=== PATIENT | female | born 1940 | race Caucasian/White ===

== ENCOUNTER 2018-11-17 14:49 | Inpatient (IN) | payer MEDICARE ==
[2018-11-17] MEDS ORDERED: cefTRIAXone\\ROCEPHIN 1 GM VIAL ONE (15:39)
[2018-11-17] MEDS ORDERED: Acetaminophen 325 MG TAB ONE (15:40)
--- NOTE | 2018-11-17 15:40 | RAD ---
PORTABLE CHEST 1 VIEW: Date: 11/17/18 Time: 1530 hours HISTORY: Cough, congestion. FINDINGS: The heart size is normal. There is a mass-like opacity in the left upper lobe. No pneumothoraces or p leural effusions are seen. Further evaluation with contrast enhanced CT scan is recommended. POS: [facility]
[2018-11-17 15:45] LABS: #Monocytes 1.1 thou/uL (0.11-0.59); #Neutrophils 9.1 thou/uL (1.40-6.50); %Basophils 0.3 % (0.0-1.0); %Eosinophils 0.2 % (0.0-10.0); %Lymphocytes 16.3 % (21.0-51.0); %Monocytes 9.1 % (0.0-10.0); %Neutrophils 74.1 % (42.0-75.0); Hemoglobin 13.1 g/dL (12.0-16.0); Mean Corpuscular HGB CONC 32.8 g/dL (32.0-36.0); Mean Corpuscular Hemoglobin 30.3 pg (27.0-31.0); Mean Corpuscular Volume 92.4 fL (78.0-98.0); Mean Platelet Volume 7.1 fL (7.4-10.4); Platelet Count 243 thou/uL (130-400); Red Blood Cell (RBC) Count 4.31 mill/uL (4.20-5.40); White Blood Cell (WBC) Count 12.3 thou/uL (4.8-10.8)
[2018-11-17] MEDS ORDERED: Azithromycin 500 MG VIAL ONE (15:48)
[2018-11-17 15:57] LABS: Bilirubin Small (Negative); Blood, Urine Moderate (Negative); Clarity CLOUDY (Clear); Glucose, Urine (Dipstick) Negative (Negative); Leukocyte Small (Negative); Nitrite Negative (Negative); Protein, Urine (Dipstick) 100 mg/dL (Neg-Trace); Specific Gravity, Urine 1.028 (1.002-1.036); Urobilinogen 0.2 mg/dL (0.2-1.0)
[2018-11-17 16:01] LABS: WBC/HPF 21-50 HPF (0-3)
[2018-11-17 16:04] LABS: ALT (SGPT) 15 U/L (8-55); AST (SGOT) 22 U/L (5-34); Albumin 3.8 g/dL (3.4-4.8); Alkaline Phosphatase 48 U/L (40-150); Anion Gap 17 mmol/L (10-20); BUN (Urea Nitrogen) 14 mg/dL (9.8-20.1); Bilirubin, Total 0.8 mg/dL (0.2-1.2); Calc. Creatinine Clearance 0 mL/min (70-130); Calcium 8.8 mg/dL (7.8-10.44); Carbon Dioxide 22 mmol/L (23-31); Chloride 99 mmol/L (98-107); Estimated GFR-MDRD 88; Globulin 3.1 g/dL (2.4-3.5); Glucose 112 mg/dL (83-110); Protein, Total 6.9 g/dL (6.0-8.3); Sodium 134 mmol/L (136-145)
[2018-11-17 16:07] LABS: Troponin I Less than 0.010 ng/mL (< 0.028)
[2018-11-17 16:14] LABS: Pathc Cast-AUWi Flag 3.77 (0-2.49)
[2018-11-17 16:26] LABS: Bacteria/HPF 1+ HPF (None Seen); Hyaline Casts/LPF NONE SEEN LPF (0-3 Hyaline); Manual Microscopic Reviewed? No Path Casts Seen; Renal Epithelial None Seen HPF (0-3); Transitional Epithelial 0-3 HPF (0-3)
--- NOTE | 2018-11-17 16:46 | PDOC.FPRHP ---
- History of Present Illness Chief Complaint: falls and weakness History of Present Illness: The patient is an 78 YO female with a PMH significant for lung cancer with mets to the brain diagnosed ~ 2 years ago who presented to the ED per the urging of her family due to multiple falls, generalized weakness and cough that began about 3 days ago. Of note, the patient was not open to answering most questions so the majority of the history was obtained from her son-in-law who was at the bedside. Per the son-in-law the patient came to visit he and his about 3 days ago and has since developed a wet sounding cough and has had 2 falls do to generalized weakness. He stated that he and his have had to help her to the bathroom because she has been too weak to walk there on her own. He also endorsed decreased PO intake. The patient denied any fever/chills, SOB, diarrhea, N/V, or dysuria. She did endorse some chest pain that she feels only when she coughs. 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 Social: Denied any tobacco, EtOH, or drug use. Lives at home alone currently. - Review of Systems ROS unobtainable: other (difficult to obtain as patient was reluctant to answer questions) General: reports: weight/appetite/sleep changes, fatigue. denies: fever/chills Respiratory: reports: cough. denies: shortness of breath Cardiovascular: reports: chest pain. denies: palpitation, edema Gastrointestinal: denies: nausea, vomiting, diarrhea, abdominal pain Genitourinary: reports: other (no hematuria). denies: dysuria Neurological: reports: weakness (genrealized) - Vital signs BP: 135/76 HR: 99 RR: 26 Tmax: 103.7F Pox: 95% on RA Wt: 58 kg - Physical Exam Constitutional: NAD, awake, alert and oriented (difficult to assess orientation as patient was reluctant to answer questions) HEENT: normocephalic and atraumatic, PERRLA, conjunctiva clear, grossly normal vision, grossly normal hearing, oropharynx clear, other (dry mucus memrbanes) Neck: supple, FROM Heart: RRR, normal S1/S2, pulses present, no edema Lungs: no respiratory distress, no wheezing, other (rhonchi in B/L upper lobes) Abdomen: soft, non-tender, bowel sounds present Musculoskeletal: normal structure, ROM grossly normal Neurological: no focal deficit, CN II-XII intact Skin: no rash/lesions, good turgor, no jaundice Heme/Lymphatic: other (ecchymosis over left eye 2/2 fall per family) Psychiatric: normal mood and affect, intact recent and remote memory (difficult to assess as patient was reluctant to talk during interview) FMR H&P: Results - Labs Result Diagrams: 11/21/18 04:05 11/21/18 04:05 Lab results: WBC 12.3 thou/uL (4.8-10.8) H 11/17/18 15:10 Hgb 13.1 g/dL (12.0-16.0) 11/17/18 15:10 Hct 39.8 % (36.0-47.0) 11/17/18 15:10 MCV 92.4 fL (78.0-98.0) 11/17/18 15:10 Plt Count 243 thou/uL (130-400) 11/17/18 15:10 Neutrophils % 74.1 % (42.0-75.0) 11/17/18 15:10 Sodium 134 mmol/L (136-145) L 11/17/18 15:10 Potassium 4.0 mmol/L (3.5-5.1) 11/17/18 15:10 Chloride 99 mmol/L (98-107) 11/17/18 15:10 Carbon Dioxide 22 mmol/L (23-31) L 11/17/18 15:10 BUN 14 mg/dL (9.8-20.1) 11/17/18 15:10 Creatinine 0.65 mg/dL (0.6-1.1) 11/17/18 15:10 Glucose 112 mg/dL (83-110) H 11/17/18 15:10 Calcium 8.8 mg/dL (7.8-10.44) 11/17/18 15:10 Total Bilirubin 0.8 mg/dL (0.2-1.2) 11/17/18 15:10 AST 22 U/L (5-34) 11/17/18 15:10 ALT 15 U/L (8-55) 11/17/18 15:10 Alkaline Phosphatase 48 U/L (40-150) 11/17/18 15:10 Serum Total Protein 6.9 g/dL (6.0-8.3) 11/17/18 15:10 Albumin 3.8 g/dL (3.4-4.8) 11/17/18 15:10 Urine Ketones 80 mg/dL (Negative) H 11/17/18 15:27 Urine Blood Moderate (Negative) H 11/17/18 15:27 Urine Nitrite Negative (Negative) 11/17/18 15:27 Ur Leukocyte Esterase Small (Negative) H 11/17/18 15:27 Urine RBC 11-20 HPF (0-3) H 11/17/18 15:27 Urine WBC 21-50 HPF (0-3) H 11/17/18 15:27 Ur Squamous Epith Cells 7-10 HPF (0-3) H 11/17/18 15:27 Urine Bacteria 1+ HPF (None Seen) H 11/17/18 15:27 - EKG Interpretation EKG: NSR - Radiology Interpretation Chest x-ray Status: image reviewed by me, report reviewed by me (SARA opacity) FMR H&P: A/P - Problem List (1) Sepsis Current Visit: Yes Status: Resolved Code(s): A41.9 - SEPSIS, UNSPECIFIED ORGANISM (2) Pneumonia Current Visit: Yes Status: Acute Code(s): J18.9 - PNEUMONIA, UNSPECIFIED ORGANISM (3) Lung cancer metastatic to brain Current Visit: Yes Status: Chronic Code(s): C34.90 - MALIGNANT NEOPLASM OF UNSP PART OF UNSP BRONCHUS OR LUNG; C79.31 - SECONDARY MALIGNANT NEOPLASM OF BRAIN - Plan 78YO female w/ a PMH significant for metastatic lung cancer to the brain who presented to the ED with a CC of cough, weakness and falls over the last 3 days who was found to be septic 2/2 post-obstructive PNA. Sepsis 2/2 post-obstructive PNA: - WBC elevated at 12.3 and fever up to 101.9F in the ER w/ SARA opacity seen on CXR consistent w/ lung CA diagnosis. Flu swab negative in the ED. PNA most likely post-obstructive 2/2 lung mass. - s/p 1.6L of NS and IV rocephin and azithromycin in the ED. - Will continue IVFs w/ NS @ 125mL/hr and will continue IV antibiotics. - Blood and urine cultures pending as well as a lactate and procal. Sputum cultures also ordered if patient is able to provide an adequate sample. - Will order DAVIS mucinex and PRN tessalon and Duonebs for cough. - Will order PRN O2 via nasal canula to maintain sats >92%. - Will order PRN tylenol for fever. Hyponatremia: - Na slightly below normal at 134 on admission. - Likely 2/2 decreased PO intake. - Will order a regular diet and continue IVFs w/ NS @ 125mL/hr. Lung cancer with mets to the brain: - Aware, patient is refusing any further workup or interventions. - CM and palliative care consulted per wishes of patient's family. Weakness w/ h/o multiple falls: - Likely 2/2 decreased PO intake and PNA. Patient refused further imaging such as a CT scan to r/o ICH. - Will encourage increased PO intake. - PT and OT consulted as well. Code Status: DNAR DVT PPX: lovenox & SCDs if patient refuses. ABX: rocephin & azithromycin IVFs: NS @ 125mL/hr Dispo: Will monitor on medical floor overnight. Anticipate d/c in ~2 days if patient remains HD stable. FMR H&P: Upper Level - Pertinent history 78 yo female presents for evaluation of increasing weakness. Patient has been in [facility] for 4 days visiting her daughter who lives in [facility]. Over the past four days she has had an increasing cough productive of sputum as well as progressive weakness which includes two falls. Patient has also had fevers at home. Patient and her family deny abdominal pain, n/v/d, rashes, or any focal deficits. Please refer to contracts intern note above for further history and documentation. Physical Exam: General: Female appears stated age. Moderately ill appearing Vitals: BP 129/59, Pulse 95, Resp 26, Tmax 103.7, O2 96% on Room Air CV: RRR, no murmurs Respiratory: Coarse lung sounds to bilateral upper lobes. Expiratory wheezing throughout Abdomen: Soft, nontender, normo-active bowel sounds. Extremities: Pulses equal bilaterally. No edema Neuro: CN grossly intact, no focal deficits - Plan Date/Time: 11/17/18 1646 I, Bakari Rodriguez MD, have evaluated this patient and agree with findings/ plan as outlined by contracts intern resident. Pertinent changes/additions are listed here. 1. Sepsis 2/2 to CAP - Continue antibiotics - Will order Lactic acid and Procalcitonin - IVF - Supportive therapy - Influenza negative - WBC 12.3 on admission - Consider nebulizers for symptomatic treatment 2. History of Lung Cancer - Patient is declining further imaging of chest and brain - Family is requesting Palliative Care consultation 3. Multiple falls - Likely secondary to above - Contusion to Left eye - Patient declines further imaging CODE STATUS: DNI-DNR Disposition: Stable, will admit to medical floor to continue plan of care. Addendum - Attending - Attending Attestation Date/Time: 11/21/18 1631 I personally evaluated the patient and discussed the management with Dr. Adamson on 11/17/18. I agree with the History, Examination, Assessment and Plan documented above with any addition or exceptions noted below. 78 y.o. WF with h/o Lung CA with mets to brain who's declined Evidence-based CTX and/or XRT for aromatherapy and nutritional therapy, here with increased weakness, falls, weight loss found to have SARA infiltrate that could be mass- related with possible post-obstructive PNA. With fever and increased WBC's, she 's being admitted for PNA, though pt. has declined further imaging or w/u to completely assess her situation after counseling to the consequence.
--- NOTE | 2018-11-17 16:46 | PDOC.FPROB ---
FMR OB H&P: Results - Labs Lab results: Laboratory Results - last 24 hr 11/17/18 11/17/18 11/17/18 15:10 15:10 15:10 WBC 12.3 H RBC 4.31 Hgb 13.1 Hct 39.8 MCV 92.4 MCH 30.3 MCHC 32.8 RDW 12.0 Plt Count 243 MPV 7.1 L Neutrophils % 74.1 Lymphocytes % 16.3 L Monocytes % 9.1 Eosinophils % 0.2 Basophils % 0.3 Neutrophils # 9.1 H Lymphocytes # 2.0 Monocytes # 1.1 H Eosinophils # 0.0 Basophils # 0.0 Sodium 134 L Potassium 4.0 Chloride 99 Carbon Dioxide 22 L Anion Gap 17 BUN 14 Creatinine 0.65 Estimated GFR (MDRD) 88 Glucose 112 H Calcium 8.8 Total Bilirubin 0.8 AST 22 ALT 15 Alkaline Phosphatase 48 Troponin I Less than 0.010 Serum Total Protein 6.9 Albumin 3.8 Globulin 3.1 Albumin/Globulin Ratio 1.2 FMR OB H&P: A/P Discussion: Date/Time: 11/17/181621 This H&P was discussed with [] and [] who agree with the above documentation and plan.
[2018-11-17] MEDS ORDERED: Acetaminophen 325 MG TAB PO PRN ×2 (18:46→18:49)
[2018-11-17] MEDS ORDERED: Ondansetron ODT 4 MG TAB PO PRN (18:49)
[2018-11-17] MEDS ORDERED: Benzonatate 100 MG CAP PO PRN (18:49)
[2018-11-17 19:27] VITALS: BMI 19.3
[2018-11-17] MEDS: Sodium Chloride 0.9% 1,000 ML IV SCH (19:42)
[2018-11-17] MEDS: guaiFENesin/DM ER PO SCH (20:39)
[2018-11-18] MEDS: Sodium Chloride 0.9% 1,000 ML IV SCH ×3 (03:43→18:49)
[2018-11-18 05:08] LABS: #Monocytes 1.1 thou/uL (0.11-0.59); #Neutrophils 7.1 thou/uL (1.40-6.50); %Basophils 0.3 % (0.0-1.0); %Eosinophils 0.4 % (0.0-10.0); %Lymphocytes 19.7 % (21.0-51.0); %Monocytes 10.7 % (0.0-10.0); %Neutrophils 68.9 % (42.0-75.0); Hemoglobin 11.7 g/dL (12.0-16.0); Mean Corpuscular HGB CONC 33.1 g/dL (32.0-36.0); Mean Corpuscular Hemoglobin 30.9 pg (27.0-31.0); Mean Corpuscular Volume 93.6 fL (78.0-98.0); Mean Platelet Volume 7.1 fL (7.4-10.4); Platelet Count 219 thou/uL (130-400); RBC Distribution Width 12.1 % (11.5-14.5); Red Blood Cell (RBC) Count 3.79 mill/uL (4.20-5.40); White Blood Cell (WBC) Count 10.4 thou/uL (4.8-10.8)
[2018-11-18 05:31] LABS: Anion Gap 11 mmol/L (10-20); BUN (Urea Nitrogen) 12 mg/dL (9.8-20.1); Calc. Creatinine Clearance 71 mL/min (70-130); Calcium 8.6 mg/dL (7.8-10.44); Carbon Dioxide 24 mmol/L (23-31); Chloride 107 mmol/L (98-107); Estimated GFR-MDRD Greater than 90; Glucose 107 mg/dL (83-110); Potassium 3.6 mmol/L (3.5-5.1); Sodium 138 mmol/L (136-145)
--- NOTE | 2018-11-18 06:59 | PDOC.FM ---
- Subjective Subjective: 78 yo f with lung cancer presents s/p fall admitted for sepsis 2/2 CAP vs UTI. No complaints this morning. Denies shortness of breath, chest pain, pain in general. - Objective MAR Reviewed: Yes Vital Signs & Weight: Vital Signs (12 hours) Temp Pulse Resp BP Pulse Ox 11/18/18 03:46 98.5 F 78 18 119/64 92 L 11/18/18 00:00 99.1 F 84 20 140/70 92 L 11/17/18 20:00 93 L Weight Weight 59.466 kg I&O: 11/16/18 11/17/18 11/18/18 06:59 06:59 06:59 Intake Total 1500 Output Total 450 Balance 1050 Result Diagrams: 11/18/18 04:04 11/18/18 04:04 Phys Exam - Physical Examination Constitutional: NAD HEENT: PERRLA, moist MMs Respiratory: no wheezing, no rales decreased breath sounds bilaterally Cardiovascular: RRR, no significant murmur Gastrointestinal: soft, non-tender Musculoskeletal: no edema Neurological: non-focal Psychiatric: normal affect, A&O x 3 Skin: no rash Dx/Plan (1) CAP (community acquired pneumonia) Code(s): J18.9 - PNEUMONIA, UNSPECIFIED ORGANISM Status: Acute (2) UTI (urinary tract infection) Status: Acute (3) Lung cancer metastatic to brain Code(s): C34.90 - MALIGNANT NEOPLASM OF UNSP PART OF UNSP BRONCHUS OR LUNG; C79.31 - SECONDARY MALIGNANT NEOPLASM OF BRAIN Status: Acute (4) Sepsis Code(s): A41.9 - SEPSIS, UNSPECIFIED ORGANISM Status: Acute - Plan Plan: 78YO female w/ a PMH significant for metastatic lung cancer to the brain who presented to the ED with a CC of cough, weakness and falls over the last 3 days who was found to be septic 2/2 post-obstructive PNA. Sepsis 2/2 post-obstructive PNA: - WBC elevated at 12.3 and fever up to 101.9F in the ER w/ SARA opacity seen on CXR consistent w/ lung CA diagnosis. Flu swab negative in the ED. PNA most likely post-obstructive 2/2 lung mass. WBC downtrended to 11.2 - s/p 1.6L of NS and IV rocephin and azithromycin in the ED. - Will decrease fluids to 75 mL/hr and will continue IV antibiotics. - Blood and urine cultures pending as well as a lactate and procal. - DAVIS mucinex and PRN tessalon and Duonebs for cough. - PRN O2 via nasal canula to maintain sats >92%. - PRN tylenol for fever. Hyponatremia - resolved - Likely 2/2 decreased PO intake. - Will order a regular diet and continue IVFs w/ NS @ 75mL/hr. Lung cancer with mets to the brain: - Aware, patient is refusing any further workup or interventions. - CM and palliative care consulted per wishes of patient's family. - PT consulted Weakness w/ h/o multiple falls: - Likely 2/2 decreased PO intake and PNA. Patient refused further imaging such as a CT scan to r/o ICH. - Will encourage increased PO intake. - PT and OT consulted as well.
[2018-11-18] MEDS: guaiFENesin/DM ER PO SCH ×2 (08:39→21:00)
[2018-11-18] MEDS: Enoxaparin Sodium 40 MG/0.4 ML SYRINGE SC SCH (08:45)
--- NOTE | 2018-11-18 11:09 | PRG ---
DATE OF SERVICE: 11/18/2018 Ms. Payne is a pleasant, but very quiet 78-year-old white female with metastatic lung cancer. She does not desire any medical therapy. We have consulted Palliative Care and we are having discussions also with the patient's daughter. We will of course honor her wishes. Job ID: [id number]
[2018-11-18] MEDS ORDERED: cefTRIAXone\\ROCEPHIN 1 GM in Sodium Chloride 0.9% 100 ML IVPB SCH (15:00)
[2018-11-18] MEDS ORDERED: Azithromycin 500 MG in Sodium Chloride 0.9% 250 ML 250 ML IVPB SCH (16:00)
[2018-11-19] MEDS: Sodium Chloride 0.9% 1,000 ML IV SCH ×3 (02:49→20:50)
[2018-11-19 05:53] LABS: #Eosinphils 0.3 thou/uL (0.0-0.7); #Lymphocytes 2.4 thou/uL (1.20-3.40); #Monocytes 0.8 thou/uL (0.11-0.59); #Neutrophils 3.6 thou/uL (1.40-6.50); %Basophils 0.6 % (0.0-1.0); %Lymphocytes 33.9 % (21.0-51.0); %Neutrophils 50.5 % (42.0-75.0); Hemoglobin 11.5 g/dL (12.0-16.0); Mean Corpuscular HGB CONC 32.7 g/dL (32.0-36.0); Mean Corpuscular Hemoglobin 30.8 pg (27.0-31.0); Mean Platelet Volume 7.1 fL (7.4-10.4); Platelet Count 245 thou/uL (130-400); RBC Distribution Width 12.2 % (11.5-14.5); Red Blood Cell (RBC) Count 3.72 mill/uL (4.20-5.40); White Blood Cell (WBC) Count 7.2 thou/uL (4.8-10.8)
[2018-11-19 06:23] LABS: Anion Gap 11 mmol/L (10-20); BUN (Urea Nitrogen) 12 mg/dL (9.8-20.1); Calc. Creatinine Clearance 77 mL/min (70-130); Calcium 8.3 mg/dL (7.8-10.44); Carbon Dioxide 23 mmol/L (23-31); Chloride 108 mmol/L (98-107); Estimated GFR-MDRD Greater than 90; Glucose 91 mg/dL (83-110); Potassium 3.7 mmol/L (3.5-5.1); Sodium 138 mmol/L (136-145)
--- NOTE | 2018-11-19 07:23 | PDOC.FM ---
- Subjective Subjective: NAEON. Doing well this morning, eating breakfast. Denies shortness of breath or difficulty breathing. Agreeable to swing bed in [place]. Pending approval. - Objective MAR Reviewed: Yes Vital Signs & Weight: Weight Admit Weight 59.466 kg Weight 59.466 kg I&O: 11/18/18 11/19/18 11/20/18 06:59 06:59 06:59 Intake Total 1500 2300 Output Total 450 750 Balance 1050 1550 Result Diagrams: 11/19/18 05:23 11/19/18 05:23 Phys Exam - Physical Examination Constitutional: NAD HEENT: PERRLA, moist MMs Respiratory: no wheezing, no rales decreased breath sounds bilaterally Cardiovascular: RRR, no significant murmur Gastrointestinal: soft, non-tender, no distention Musculoskeletal: no edema, pulses present Neurological: non-focal Psychiatric: normal affect, A&O x 3 Skin: no rash Dx/Plan (1) post obstructive pneumonia Status: Suspected (2) CAP (community acquired pneumonia) Code(s): J18.9 - PNEUMONIA, UNSPECIFIED ORGANISM Status: Suspected (3) UTI (urinary tract infection) Status: Ruled-out (4) Lung cancer metastatic to brain Code(s): C34.90 - MALIGNANT NEOPLASM OF UNSP PART OF UNSP BRONCHUS OR LUNG; C79.31 - SECONDARY MALIGNANT NEOPLASM OF BRAIN Status: Chronic (5) Sepsis Code(s): A41.9 - SEPSIS, UNSPECIFIED ORGANISM Status: Resolved - Plan Plan: 78YO female w/ a PMH significant for metastatic lung cancer to the brain who presented to the ED with a CC of cough, weakness and falls over the last 3 days who was found to be septic 2/2 post-obstructive PNA. Sepsis 2/2 post-obstructive PNA vs CAP: - Will decrease fluids to 75 mL/hr and transitioned to PO azithro and omnicef today - Blood and urine cultures negative - DAVIS mucinex and PRN tessalon and Duonebs for cough. - PRN O2 via nasal canula to maintain sats >92%. - PRN tylenol for fever. Hyponatremia - resolved Lung cancer with mets to the brain: - Aware, patient is refusing any further workup or interventions. - CM and palliative care consulted per wishes of patient's family. Pt is pending approval at [facility] [place]. - PT consulted Weakness w/ h/o multiple falls: - Likely 2/2 decreased PO intake and PNA. Patient refused further imaging such as a CT scan to r/o ICH. - Will encourage increased PO intake. - PT and OT consulted. Dispo: probable discharge today or tomorrow pending acceptance at swing bed in [place].
[2018-11-19] MEDS: Azithromycin 250 MG TAB PO SCH (09:18)
[2018-11-19] MEDS: Cefdinir 300 MG CAP PO SCH ×2 (09:18→20:13)
[2018-11-19] MEDS: Enoxaparin Sodium 40 MG/0.4 ML SYRINGE SC SCH (09:19)
--- NOTE | 2018-11-19 11:01 | PRG ---
DATE OF SERVICE: 11/19/2018 SUBJECTIVE: Ms. Payne seems in better spirits this morning. She is not having any cough or chest discomfort. No shortness of breath. We have switched her to p.o. medications in anticipation of discharge in a day or two. Job ID: [id number]
[2018-11-19] MEDS: guaiFENesin/DM ER PO SCH ×2 (11:08→20:12)
[2018-11-20] MEDS: Sodium Chloride 0.9% 1,000 ML IV SCH (01:19)
[2018-11-20 04:17] LABS: #Basophils 0.1 thou/uL (0.0-0.2); #Eosinphils 0.4 thou/uL (0.0-0.7); #Lymphocytes 2.6 thou/uL (1.20-3.40); #Monocytes 0.7 thou/uL (0.11-0.59); #Neutrophils 3.2 thou/uL (1.40-6.50); %Basophils 0.9 % (0.0-1.0); %Eosinophils 5.1 % (0.0-10.0); %Lymphocytes 37.4 % (21.0-51.0); %Monocytes 9.9 % (0.0-10.0); %Neutrophils 46.6 % (42.0-75.0); Hemoglobin 11.8 g/dL (12.0-16.0); Mean Corpuscular HGB CONC 32.8 g/dL (32.0-36.0); Mean Corpuscular Hemoglobin 30.7 pg (27.0-31.0); Mean Corpuscular Volume 93.5 fL (78.0-98.0); Mean Platelet Volume 6.7 fL (7.4-10.4); Platelet Count 258 thou/uL (130-400); Red Blood Cell (RBC) Count 3.84 mill/uL (4.20-5.40); White Blood Cell (WBC) Count 6.8 thou/uL (4.8-10.8)
[2018-11-20 04:37] LABS: Anion Gap 11 mmol/L (10-20); BUN (Urea Nitrogen) 9 mg/dL (9.8-20.1); Calc. Creatinine Clearance 79 mL/min (70-130); Calcium 8.4 mg/dL (7.8-10.44); Carbon Dioxide 24 mmol/L (23-31); Chloride 108 mmol/L (98-107); Estimated GFR-MDRD Greater than 90; Glucose 96 mg/dL (83-110); Potassium 3.3 mmol/L (3.5-5.1); Sodium 140 mmol/L (136-145)
--- NOTE | 2018-11-20 07:24 | PDOC.FM ---
- Subjective Subjective: NAEON. Doing well this morning. - Objective MAR Reviewed: Yes Vital Signs & Weight: Vital Signs (12 hours) Temp Pulse Resp BP Pulse Ox 11/19/18 20:00 98.5 F 65 16 137/65 95 Weight Admit Weight 59.466 kg Weight 59.466 kg I&O: 11/19/18 11/20/18 11/21/18 06:59 06:59 06:59 Intake Total 2300 1550 Output Total 750 800 Balance 1550 750 Result Diagrams: 11/20/18 03:53 11/20/18 03:53 Phys Exam - Physical Examination Constitutional: NAD HEENT: PERRLA, moist MMs Respiratory: no wheezing, no rales decreased breath sounds bilaterally Cardiovascular: RRR, no significant murmur Gastrointestinal: soft, non-tender, no distention, positive bowel sounds Musculoskeletal: no edema, pulses present Neurological: non-focal, normal sensation Psychiatric: normal affect, A&O x 3 Skin: no rash, normal turgor Dx/Plan (1) post obstructive pneumonia Status: Suspected (2) CAP (community acquired pneumonia) Code(s): J18.9 - PNEUMONIA, UNSPECIFIED ORGANISM Status: Ruled-out (3) UTI (urinary tract infection) Status: Ruled-out (4) Lung cancer metastatic to brain Code(s): C34.90 - MALIGNANT NEOPLASM OF UNSP PART OF UNSP BRONCHUS OR LUNG; C79.31 - SECONDARY MALIGNANT NEOPLASM OF BRAIN Status: Chronic (5) Sepsis Code(s): A41.9 - SEPSIS, UNSPECIFIED ORGANISM Status: Resolved - Plan Plan: 78YO female w/ a PMH significant for metastatic lung cancer to the brain who presented to the ED with a CC of cough, weakness and falls over the last 3 days who was found to be septic 2/2 post-obstructive PNA. Sepsis 2/2 post-obstructive PNA vs CAP: - Continue PO azithro and omnicef today - Blood cx negative; urine cx + for gram negative rods - DAVIS mucinex and PRN tessalon and Duonebs for cough. - PRN O2 via nasal canula to maintain sats >92%. - PRN tylenol for fever. Hyponatremia - resolved Lung cancer with mets to the brain: - Aware, patient is refusing any further workup or interventions. - CM and palliative care consulted per wishes of patient's family. Pt is pending approval at swing bed in [place]. - PT consulted Weakness w/ h/o multiple falls: - Likely 2/2 decreased PO intake and PNA. Patient refused further imaging such as a CT scan to r/o ICH. - Will encourage increased PO intake. - PT and OT consulted. Dispo: probable discharge today pending acceptance at swing bed in [place].
[2018-11-20] MEDS ORDERED: Potassium Chloride 20 MEQ TAB PO SCH (07:30)
[2018-11-20] MEDS: Enoxaparin Sodium 40 MG/0.4 ML SYRINGE SC SCH (08:23)
[2018-11-20] MEDS: Azithromycin 250 MG TAB PO SCH (08:23)
[2018-11-20] MEDS: Cefdinir 300 MG CAP PO SCH ×2 (08:23→20:25)
[2018-11-20] MEDS: guaiFENesin/DM ER PO SCH ×2 (08:25→20:25)
--- NOTE | 2018-11-20 10:52 | PDOC.EVN ---
Event Note - Event Note Event Note: SHARON: HPI: 78 YO female w/ a PMH significant for metastatic lung cancer to the brain who presented to the ED with a CC of cough, weakness and falls over the last 3 days who was found to be septic 2/2 post-obstructive PNA. Sepsis 2/2 post-obstructive PNA vs CAP: Pt initially started on IV rocephin and azithromicin, now transitioned to PO omnicef and azithromicin. Pt continues to improve clinically. Blood cx were negative. Ucx grew gram negative rods but only 5,000 CFU's and pt asymptomatic, however the pt is also on omnicef for coverage. Pt is pending placement at a swing bed in [place]. Pt will complete 5 days of omnicef and azithromicin. Lung cancer with mets to the brain- patient is refusing any further workup or interventions. CM and palliative care consulted per wishes of patient's family. Pt is pending approval at swing bed in [place]. Weakness w/ h/o multiple falls: Likely 2/2 decreased PO intake and PNA. Patient refused further imaging such as a CT scan to r/o ICH.
--- NOTE | 2018-11-20 11:37 | PRG ---
DATE OF SERVICE: 11/20/2018 TYPE OF REPORT: Daily note SUBJECTIVE: Ms. Payne is sitting comfortably in a chair, in no distress. We are still awaiting swing bed placement. From medical standpoint, she has improved and is stable. Job ID: [id number]
[2018-11-21] MEDS: Sodium Chloride 0.9% 1,000 ML IV SCH ×2 (03:25→11:07)
[2018-11-21 05:15] LABS: #Eosinphils 0.4 thou/uL (0.0-0.7); #Lymphocytes 2.9 thou/uL (1.20-3.40); #Monocytes 0.6 thou/uL (0.11-0.59); %Eosinophils 5.3 % (0.0-10.0); %Lymphocytes 41.4 % (21.0-51.0); %Monocytes 9.1 % (0.0-10.0); %Neutrophils 44.2 % (42.0-75.0); Hemoglobin 11.5 g/dL (12.0-16.0); Mean Corpuscular HGB CONC 33.4 g/dL (32.0-36.0); Mean Corpuscular Hemoglobin 31.1 pg (27.0-31.0); Mean Corpuscular Volume 93.3 fL (78.0-98.0); Platelet Count 294 thou/uL (130-400); RBC Distribution Width 11.9 % (11.5-14.5); Red Blood Cell (RBC) Count 3.71 mill/uL (4.20-5.40); White Blood Cell (WBC) Count 6.9 thou/uL (4.8-10.8)
[2018-11-21 05:49] LABS: Anion Gap 11 mmol/L (10-20); BUN (Urea Nitrogen) 9 mg/dL (9.8-20.1); Calc. Creatinine Clearance 73 mL/min (70-130); Calcium 8.5 mg/dL (7.8-10.44); Carbon Dioxide 27 mmol/L (23-31); Chloride 107 mmol/L (98-107); Estimated GFR-MDRD Greater than 90; Glucose 102 mg/dL (83-110); Potassium 3.5 mmol/L (3.5-5.1); Sodium 141 mmol/L (136-145)
[2018-11-21] MEDS: Enoxaparin Sodium 40 MG/0.4 ML SYRINGE SC SCH (09:24)
[2018-11-21] MEDS: Azithromycin 250 MG TAB PO SCH (09:31)
[2018-11-21] MEDS: Cefdinir 300 MG CAP PO SCH ×2 (09:31→20:05)
[2018-11-21] MEDS: guaiFENesin/DM ER PO SCH ×2 (09:31→20:05)
--- NOTE | 2018-11-21 10:13 | PRG ---
DATE OF SERVICE: 11/21/2018 Ms. Payne is sitting comfortably in her chair, in no distress. We are still awaiting swing bed placement. Clinically, she remains improved. Job ID: [id number]
--- NOTE | 2018-11-21 10:46 | PDOC.FM ---
- Subjective Subjective: Patient seen this morning sitting up eating breakfast. No complaints or new symptoms this morning. No acute events over night. - Objective MAR Reviewed: Yes Vital Signs & Weight: Vital Signs (12 hours) Temp Pulse Resp BP Pulse Ox 11/21/18 08:20 97.4 F L 69 16 139/71 94 L Weight Admit Weight 59.466 kg Weight 59.466 kg I&O: 11/20/18 11/21/18 11/22/18 06:59 06:59 06:59 Intake Total 1550 2350 Output Total 800 Balance 750 2350 Result Diagrams: 11/21/18 04:05 11/21/18 04:05 Phys Exam - Physical Examination Constitutional: NAD HEENT: moist MMs Neck: no nodes Respiratory: clear to auscultation bilateral Cardiovascular: RRR, no significant murmur Gastrointestinal: no distention Musculoskeletal: no edema Neurological: moves all 4 limbs Psychiatric: A&O x 3 Skin: no rash Dx/Plan (1) post obstructive pneumonia Status: Acute (2) Lung cancer metastatic to brain Code(s): C34.90 - MALIGNANT NEOPLASM OF UNSP PART OF UNSP BRONCHUS OR LUNG; C79.31 - SECONDARY MALIGNANT NEOPLASM OF BRAIN Status: Chronic (3) Sepsis Code(s): A41.9 - SEPSIS, UNSPECIFIED ORGANISM Status: Resolved (4) UTI (urinary tract infection) Status: Ruled-out - Plan Plan: 1. Sepsis 2/2 post-obstructive PNA vs CAP: - Continue PO azithro and omnicef today, plan for 1 week total duration - Blood cx negative; urine cx + for gram negative rods - DAVIS mucinex and PRN tessalon and Duonebs for cough. - PRN O2 via nasal canula to maintain sats >92%. - PRN tylenol for fever. Lung cancer with mets to the brain: - patient is refusing any further workup or interventions. - CM and palliative care consulted per wishes of patient's family. Pt is pending approval at [facility] in [place]. - PT consulted Weakness w/ h/o multiple falls: - Likely 2/2 decreased PO intake and PNA. Patient refused further imaging such as a CT scan to r/o ICH. - Will encourage increased PO intake. - PT and OT consulted. UTI - treat as above Dispo: probable discharge today pending acceptance at swing bed in [place].
[2018-11-22] MEDS: Sodium Chloride 0.9% 1,000 ML IV SCH (01:02)
--- NOTE | 2018-11-22 08:08 | PDOC.FM ---
- Subjective Subjective: Patient seen at bedside this morning resting comfortably. No new complaints or problems. Denies continue cough or SOB. No acute events over night - Objective MAR Reviewed: Yes Vital Signs & Weight: Vital Signs (12 hours) Temp Pulse Resp BP BP Pulse Ox 11/22/18 05:00 98.2 F 61 18 159/74 H 95 11/22/18 00:26 97.5 F L 82 16 164/79 H 97 11/21/18 20:00 97.7 F 70 16 127/62 96 Weight Admit Weight 59.466 kg Weight 59.466 kg I&O: 11/21/18 11/22/18 11/23/18 06:59 06:59 06:59 Intake Total 2350 1850 Balance 2350 1850 Result Diagrams: 11/21/18 04:05 11/21/18 04:05 Phys Exam - Physical Examination Constitutional: NAD HEENT: moist MMs Neck: no JVD Respiratory: clear to auscultation bilateral Cardiovascular: RRR Gastrointestinal: soft, non-tender, no distention Musculoskeletal: no edema Neurological: moves all 4 limbs Psychiatric: A&O x 3 Skin: no rash Dx/Plan (1) post obstructive pneumonia Status: Acute (2) Lung cancer metastatic to brain Code(s): C34.90 - MALIGNANT NEOPLASM OF UNSP PART OF UNSP BRONCHUS OR LUNG; C79.31 - SECONDARY MALIGNANT NEOPLASM OF BRAIN Status: Chronic (3) Sepsis Code(s): A41.9 - SEPSIS, UNSPECIFIED ORGANISM Status: Resolved (4) UTI (urinary tract infection) Status: Ruled-out - Plan Plan: 1. Sepsis 2/2 post-obstructive PNA vs CAP, resolved - Continue PO azithro and omnicef today, plan for 1 week total duration. Dc abx tomorrow. - Blood cx negative; urine cx + for gram negative rods will be treated by omnicef 2. Lung cancer with mets to the brain: - patient is refusing any further workup or interventions. - CM and palliative care consulted per wishes of patient's family. Pt is pending approval at [facility] in [place]. - PT consulted 3. Weakness w/ h/o multiple falls: - Likely 2/2 decreased PO intake and PNA. Patient refused further imaging such as a CT scan to r/o ICH. - Will encourage increased PO intake. - PT and OT consulted. 4. UTI - treat as above Dispo: ready to discharge today pending acceptance at swing bed in [place].
[2018-11-22] MEDS: Cefdinir 300 MG CAP PO SCH ×2 (09:58→20:11)
[2018-11-22] MEDS: guaiFENesin/DM ER PO SCH ×2 (09:58→20:11)
[2018-11-22] MEDS: Enoxaparin Sodium 40 MG/0.4 ML SYRINGE SC SCH (09:59)
[2018-11-22] MEDS: Azithromycin 250 MG TAB PO SCH (09:59)
--- NOTE | 2018-11-22 10:16 | PRG ---
DATE OF SERVICE: 11/22/2018 This is an addendum to the note of Dr. Kirk Bernal. Ms. Payne is having no acute distress. No new problems. We are still awaiting swing bed in [place]. This will be her last day of antibiotic for her community-acquired pneumonia. Job ID: [id number]
--- NOTE | 2018-11-23 07:29 | PDOC.FM ---
- Subjective Subjective: THis morning patient states she is feeling well overall. She denies n/v/d. Denies shortness of breath or cough. States she tolerated supper well last night. Discussed advanced directives with patient and daughter, ALLEN. They do want to initiated OOH DNAR. - Objective Vital Signs & Weight: Vital Signs (12 hours) Temp Pulse Resp BP BP Pulse Ox 11/23/18 04:28 98.4 F 64 16 149/68 H 96 11/23/18 00:20 98.0 F 62 16 155/68 H 96 11/22/18 19:51 97.9 F 62 18 127/64 95 Weight Admit Weight 59.466 kg Weight 59.466 kg I&O: 11/22/18 11/23/18 11/24/18 06:59 06:59 06:59 Intake Total 1850 1610 Balance 1850 1610 Result Diagrams: 11/21/18 04:05 11/21/18 04:05 Phys Exam - Physical Examination Constitutional: NAD HEENT: PERRLA, moist MMs Neck: full ROM Respiratory: no wheezing, clear to auscultation bilateral Cardiovascular: RRR, no significant murmur Gastrointestinal: soft, non-tender, no distention, positive bowel sounds Musculoskeletal: no edema, pulses present Neurological: non-focal, moves all 4 limbs Psychiatric: normal affect, A&O x 3 Skin: cap refill <2 seconds Dx/Plan (1) Pneumonia Code(s): J18.9 - PNEUMONIA, UNSPECIFIED ORGANISM Status: Acute (2) Lung cancer metastatic to brain Code(s): C34.90 - MALIGNANT NEOPLASM OF UNSP PART OF UNSP BRONCHUS OR LUNG; C79.31 - SECONDARY MALIGNANT NEOPLASM OF BRAIN Status: Chronic (3) CAP (community acquired pneumonia) Code(s): J18.9 - PNEUMONIA, UNSPECIFIED ORGANISM Status: Ruled-out (4) UTI (urinary tract infection) Status: Ruled-out - Plan Plan: # Sepsis 2/2 post-obstructive PNA vs CAP, resolved - s/p azithromycin, today is final dose of omnicef - Blood cx negative x2 ; urine cx + for gram negative rods s/p treatment with omnicef # Lung cancer with mets to the brain: - patient is refusing any further workup or interventions. - CM and palliative care consulted per wishes of patient's family. Patient and family would like to establish care with palliative care company outpatient - PT consulted # Weakness w/ h/o multiple falls: - Likely 2/2 decreased PO intake and PNA. Patient refused further imaging such as a CT scan to r/o ICH. - Will encourage increased PO intake. - PT and OT consulted. # UTI - treat as above # Placement - pending [employer] and insurance prior authorization for [facility] bed - patient is stable for transfer when above is established Dispo: pending placement Addendum - Attending - Attending Attestation Date/Time: 11/23/18 9830 I personally evaluated the patient and discussed the management with Dr. Jon King I agree with the History, Examination, Assessment and Plan documented above with any addition or exceptions noted below.Patient doing well looking into d/c planning with rehab in [place], Patient and Daughter aware of plans.
[2018-11-23] MEDS: guaiFENesin/DM ER PO SCH ×2 (09:54→21:09)
[2018-11-23] MEDS: Enoxaparin Sodium 40 MG/0.4 ML SYRINGE SC SCH (09:54)
[2018-11-23] MEDS: Cefdinir 300 MG CAP PO SCH (09:54)
--- NOTE | 2018-11-23 17:43 | EKG ---
Test Reason : SEPSIS Blood Pressure : / mmHG Vent. Rate : 076 BPM Atrial Rate : 076 BPM P-R Int : 138 ms QRS Dur : 072 ms QT Int : 378 ms P-R-T Axes : -03 063 072 degrees QTc Int : 425 ms Normal sinus rhythm with sinus arrhythmia Nonspecific ST abnormality Abnormal ECG Confirmed by DARVIN HENNING ([id number]), advertising editor SANKET MONTANEZ ([id number]) on 11/23/2018 5:42:43 PM Referred By: Confirmed By:DARVIN HENNING
--- NOTE | 2018-11-24 07:00 | PDOC.FM ---
- Subjective Subjective: This morning patient states she is feeling well overall. She denies any pain, sob, or cough. Is quite pleased with the care at [facility]. Denies N/V/D. - Objective Vital Signs & Weight: Vital Signs (12 hours) Temp Pulse Resp BP Pulse Ox 11/23/18 20:00 98 11/23/18 19:38 97.5 F L 69 16 126/64 98 Weight Admit Weight 59.466 kg Weight 59.466 kg I&O: 11/22/18 11/23/18 11/24/18 06:59 06:59 06:59 Intake Total 1850 1610 700 Balance 1850 1610 700 Result Diagrams: 11/21/18 04:05 11/21/18 04:05 Phys Exam - Physical Examination Constitutional: NAD HEENT: PERRLA, moist MMs Respiratory: no wheezing, clear to auscultation bilateral Cardiovascular: RRR, no significant murmur Gastrointestinal: soft, non-tender, no distention, positive bowel sounds Musculoskeletal: no edema, pulses present Neurological: non-focal, moves all 4 limbs Psychiatric: normal affect, A&O x 3 Skin: no rash, cap refill <2 seconds Dx/Plan (1) Pneumonia Code(s): J18.9 - PNEUMONIA, UNSPECIFIED ORGANISM Status: Acute (2) Lung cancer metastatic to brain Code(s): C34.90 - MALIGNANT NEOPLASM OF UNSP PART OF UNSP BRONCHUS OR LUNG; C79.31 - SECONDARY MALIGNANT NEOPLASM OF BRAIN Status: Chronic (3) CAP (community acquired pneumonia) Code(s): J18.9 - PNEUMONIA, UNSPECIFIED ORGANISM Status: Ruled-out (4) UTI (urinary tract infection) Status: Ruled-out - Plan Plan: # Sepsis 2/2 post-obstructive PNA vs CAP, resolved - s/p azithromycin, final dose of omnicef 11/23 - Blood cx negative x2 ; urine cx + for gram negative rods s/p treatment with omnicef # Lung cancer with mets to the brain: - patient is refusing any further workup or interventions. - CM and palliative care consulted per wishes of patient's family. Patient and family would like to establish care with palliative care company outpatient. They just need some assistance from CM/Palliative Care to get OOT DNR all prepped. - PT consulted # Weakness w/ h/o multiple falls: - Likely 2/2 decreased PO intake and PNA. Patient refused further imaging such as a CT scan to r/o ICH. - Will encourage increased PO intake. - PT and OT consulted. # UTI - treat as above # Placement - pending [employer] and insurance prior authorization for [facility] bed - patient is stable for transfer when above is established Dispo: pending placement Addendum - Attending - Attending Attestation Date/Time: 11/24/18 9656 I personally evaluated the patient and discussed the management with Dr. Jon King I agree with the History, Examination, Assessment and Plan documented above with any addition or exceptions noted below.Patient doing well continue with restorative and palliative care. Hope to have acceptance to lower level care per [employer] insurance.
[2018-11-24] MEDS: guaiFENesin/DM ER PO SCH ×2 (11:21→21:18)
[2018-11-24] MEDS: Enoxaparin Sodium 40 MG/0.4 ML SYRINGE SC SCH (11:21)
[2018-11-25 07:08] VITALS: BP 124/62; TEMP 97.6
--- NOTE | 2018-11-25 07:22 | PDOC.FM ---
- Subjective Subjective: This morning patient states she slept well overnight. She states she still has occassional cough but no SOB or wheezing. She has been able to walk up and down the hallway without difficulty. No fevers, chills, sweats. No headache or weakness. No N/V/D. - Objective Vital Signs & Weight: Vital Signs (12 hours) Temp Pulse Resp BP BP Pulse Ox 11/25/18 07:07 97.6 F 55 L 16 124/62 96 11/24/18 20:00 97.5 F L 70 16 126/63 95 Weight Admit Weight 59.466 kg Weight 59.466 kg I&O: 11/24/18 11/25/18 11/26/18 06:59 06:59 06:59 Intake Total 700 900 Balance 700 900 Result Diagrams: 11/21/18 04:05 11/21/18 04:05 Phys Exam - Physical Examination Constitutional: NAD HEENT: PERRLA, moist MMs Neck: no nodes, full ROM Respiratory: no wheezing, clear to auscultation bilateral Cardiovascular: RRR, no significant murmur Gastrointestinal: soft, non-tender, no distention, positive bowel sounds Musculoskeletal: no edema, pulses present Neurological: non-focal, moves all 4 limbs Psychiatric: normal affect, A&O x 3 Skin: no rash, cap refill <2 seconds Dx/Plan (1) Pneumonia Code(s): J18.9 - PNEUMONIA, UNSPECIFIED ORGANISM Status: Acute (2) Lung cancer metastatic to brain Code(s): C34.90 - MALIGNANT NEOPLASM OF UNSP PART OF UNSP BRONCHUS OR LUNG; C79.31 - SECONDARY MALIGNANT NEOPLASM OF BRAIN Status: Chronic (3) CAP (community acquired pneumonia) Code(s): J18.9 - PNEUMONIA, UNSPECIFIED ORGANISM Status: Ruled-out (4) UTI (urinary tract infection) Status: Ruled-out - Plan Plan: # Sepsis 2/2 post-obstructive PNA vs CAP, resolved - s/p azithromycin, final dose of omnicef 11/23 - Blood cx negative x2 ; urine cx + for gram negative rods s/p treatment with omnicef # Lung cancer with mets to the brain: - patient is refusing any further workup or interventions. - OOH DNR is signed by physician, family states they will f/u with palliative care team outpt. - PT consulted # Weakness w/ h/o multiple falls: - Likely 2/2 decreased PO intake and PNA. Patient refused further imaging such as a CT scan to r/o ICH. - Will encourage increased PO intake. - PT and OT consulted. # UTI - treat as above # Placement - accepted to swingbed in [place] Addendum - Attending - Attending Attestation Date/Time: 11/25/18 1312 I personally evaluated the patient and discussed the management with Dr. King. I agree with the History, Examination, Assessment and Plan documented above with any addition or exceptions noted below. OOH-DNR was being completed this morning. Pt has been accepted to [place] swing bed. Will discharge.
[2018-11-25] MEDS: guaiFENesin/DM ER PO SCH (09:22)
[2018-11-25] MEDS: Enoxaparin Sodium 40 MG/0.4 ML SYRINGE SC SCH (09:23)
--- NOTE | 2018-11-25 20:31 | DIS ---
DATE OF ADMISSION: 11/17/2018 DATE OF DISCHARGE: 11/25/2018 RESIDENT: Kevin King MD CONSULTS: None. PROCEDURES: None. PRIMARY DIAGNOSES: 1. Sepsis secondary to community-acquired pneumonia. 2. 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 3. Weakness with history of multiple falls. 4. Urinary tract infection. DISCHARGE MEDICATION: Mucinex p.r.n. HISTORY OF PRESENT ILLNESS: This is an 78-year-old female with a past medical history significant for metastatic cancer to the brain, who presented to the ED with chief complaint of cough, weakness, and falls over the last few days. She was found to be septic secondary to pneumonia. The patient completed a course of azithromycin and Omnicef. The patient improved clinically. Ultimately, the patient stayed a couple of extra days awaiting placement. Advance directives were discussed at length with the patient. Ultimately, the patient and the family decided that they were continuing with Do Not Attempt Resuscitation orders. [id number] forms were signed. The patient would like to follow up with outpatient palliative care company. The patient favors comfort and quality of life over length. The patient denied further imaging of metastasis to the brain. She adamantly did not want any further workup of this. DISCHARGE INSTRUCTIONS: Location: [facility] Diet: Regular. Activities: As tolerated. FOLLOWUP: PCP in one week. Outpatient palliative care [facility]. Job ID: [id number] MTDD
== END 2018-11-25 13:09 | disposition swing bed (61) | DRG 871 ==
LOC: ERS 14:49 → ONC 16:56
PROVIDERS: ADMIT Family Medicine; ATTEND Family Medicine
DX: A41.9 Sepsis, unspecified organism (principal); J18.9 Pneumonia, unspecified organism; C34.90 Malignant neoplasm of unspecified part of unspecified bronchus or lung; C79.31 Secondary malignant neoplasm of brain; E87.1 Hypo-osmolality and hyponatremia; Z66 Do not resuscitate
CPT/HCPCS: 36415; 51701; 71045; 80048; 80053; 81003; 81015; 83605; 84145; 84484; 85025; 87040; 87070; 87086; 87205; 87804; 93005; 96365; A4353; G8978-GP-CK; G8979-GP-CI; G8987-GO-CK; G8988-GO-CJ; J0456; J0696; J1650; J7050